=== PATIENT | male | born 1950 | race Caucasian/White ===

== ENCOUNTER 2017-03-28 21:45 | Emergency (ER) | payer OTHER ==
[2017-03-29 00:35] LABS: ABSOLUTE BASOPHIL COUNT 0 /CUMM (0.0-0.2); ABSOLUTE EOSINOPHIL COUNT 0.2 /CUMM (0.0-0.7); ABSOLUTE LYMPH COUNT 1.7 /CUMM (1.2-3.4); ABSOLUTE MONOCYTE COUNT 0.9 /CUMM (0.10-0.60); BASOPHIL % 0.3 % (0.0-2.0); EOSINOPHIL % 1.8 % (0-5); GRANULOCYTE % 73.5 % (42.2-75.2); HEMATOCRIT 41.8 % (42-52); MEAN CORPUSCULAR HGB 31.7 PG (27.0-31.0); MEAN CORPUSCULAR HGB CONC 34.3 G/DL (33.0-37.0); MEAN CORPUSCULAR VOLUME 92.5 FL (80.0-94.0); MEAN PLATELET VOLUME 7.7 FL (7.4-10.4); PLATELET COUNT 217 /CUMM (130-400); RBC DISTRIBUTION WIDTH 13.3 % (11.5-14.5); RED BLOOD CELL CT 4.52 /CUMM (4.70-6.10); WHITE BLOOD CELL COUNT 10.9 /CUMM (4.8-10.8)
--- NOTE | 2017-03-29 00:59 | CT SCAN REPORT ---
EXAMINATION: CT ABDOMEN AND PELVIS WITHOUT CONTRAST CLINICAL INFORMATION: Right flank pain, hematuria COMPARISON: None TECHNIQUE: Multidetector volumetric imaging was performed from the superior aspect of the liver through the pubic symphysis. Sagittal and coronal reformatted images were obtained on the technologist's workstation. DLP: 369.58 mGy-cm FINDINGS: LUNG BASES: The visualized lung bases are unremarkable. LIVER, GALLBLADDER, AND BILIARY TREE: The liver is normal in size, shape, and attenuation. There is a subcentimeter low-density focus in the inferior right hepatic lobe on image 31/99, too small to characterize. No biliary ductal dilatation is present. The gallbladder appears collapsed. PANCREAS: Unremarkable. SPLEEN: Unremarkable. ADRENAL GLANDS: Unremarkable. KIDNEYS AND URETERS: The kidneys are normal in size, shape, and attenuation. No hydronephrosis, hydroureter, or calculi seen. No perinephric stranding. BLADDER: Unremarkable. GASTROINTESTINAL TRACT: Colonic diverticulosis is noted. The small and large bowel are otherwise unremarkable without evidence of obstruction or pericolonic inflammatory change. The appendix is not identified. No free fluid or free air is seen. ABDOMINAL WALL: No significant hernia is appreciated. Patient appears status post left inguinal hernia repair. LYMPH NODES: Normal. VASCULAR: Scattered atherosclerotic calcifications are present. PELVIC VISCERA: Unremarkable. OSSEOUS STRUCTURES: Unremarkable. IMPRESSION: 1. No renal/ureteral calculi or hydronephrosis. 2. Colonic diverticulosis without evidence of diverticulitis.
--- NOTE | 2017-03-29 01:04 | ED GI/GU/ABDOMINAL COMPLAINT ---
History of Present Illness General Chief Complaint: General Adult Stated Complaint: PT BACK PAIN AND STARTED URINATED BLOOD Source: patient, old records Exam Limitations: no limitations Vital Signs & Intake/Output Vital Signs & Intake/Output Vital Signs Date Time Temp Pulse Resp B/P B/P Pulse O2 O2 Flow FiO2 Mean Ox Delivery Rate 03/29 0246 98.6 95 16 137/84 97 Room Air 03/29 0027 99.2 69 20 132/75 97 Room Air 03/28 2207 98.0 73 22 155/91 98 ED Intake and Output 03/29 0000 03/28 1200 Intake Total Output Total 300 Balance -300 Output, Urine 300 Allergies Coded Allergies: No Known Allergies (03/28/17) Reconcile Medications No Known Home Medications Triage Note: PER PT CO BACK PAIN AND FELT LIKE A PINCHING. TONIGHT MY URINE IS DARK Triage Nurses Notes Reviewed? yes Onset: Morning Duration: hour(s):, continues in ED, waxing and waning Timing: recent history Quality/Severity: aching, moderate Location: right flank Radiation: groin, RLQ Activities at Onset: none Prior Abdominal Problems: none Past Sexual History: Unobtainable at this time No Modifying Factors: none Associated Symptoms: abdominal pain, hematuria HPI: 12 hours prior to admission patient complains of mild to moderate right flank pain radiating to the groin associated with dark urine and bloody urine he denies fever chills nausea vomiting diarrhea chest pain cough shortness of breath headache dysuria rash.. Past History Travel History Traveled to [place] past 21 day No Medical History Any Pertinent Medical History? none Neurological: NONE EENT: NONE Cardiovascular: NONE Respiratory: NONE Gastrointestinal: NONE Hepatic: NONE Renal: NONE Musculoskeletal: NONE Psychiatric: NONE Endocrine: NONE Surgical History Surgical History: non-contributory Psychosocial History What is your primary language [place] Tobacco Use: Never used Family History Hx Contributory? No Review of Systems Review of Systems Constitutional: Reports: no symptoms. EENTM: Reports: no symptoms. Respiratory: Reports: no symptoms. Cardiovascular: Reports: no symptoms. GI: Reports: see HPI, abdominal pain. Genitourinary: Reports: see HPI, hematuria. Musculoskeletal: Reports: no symptoms. Skin: Reports: no symptoms. Neurological/Psychological: Reports: no symptoms. Hematologic/Endocrine: Reports: no symptoms. Immunologic/Allergic: Reports: no symptoms. All Other Systems: Reviewed and Negative Physical Exam Physical Exam General Appearance: well developed/nourished, alert, awake, anxious, moderate distress, obese Head: atraumatic, normal appearance Eyes: Bilateral: normal appearance, PERRL, EOMI, normal inspection. Ears, Nose, Throat, Mouth: hearing grossly normal, moist mucous membrane Neck: normal inspection, supple, full range of motion, normal alignment Respiratory: normal breath sounds, chest non-tender, no respiratory distress, quiet respiration, lungs clear Cardiovascular: regular rate/rhythm, normal peripheral pulses, norml femoral pulses equa Peripheral Pulses: 4+ carotid (R), 4+ carotid (L) Gastrointestinal: normal bowel sounds, soft, non-tender, no organomegaly Male Genitals: normal genitalia Back: normal inspection, normal range of motion, CVA tenderness (R), no vertebral tenderness Extremities: normal range of motion, no ligament instability Neurologic/Psych: no motor/sensory deficits, awake, alert, oriented x 3, normal gait, normal mood/affect, 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 No Sepsis Present: No Sepsis Focused Exam Completed? No Progress Differential Diagnosis: pancreatitis, pyelonephritis, ureterolithiasis Plan of Care: Orders Procedure Date/time Status LIPASE 03/28 2336 Complete COMPREHENSIVE METABOLIC PANEL 03/28 2336 Complete CBC WITHOUT DIFFERENTIAL 03/28 2335 Complete URINALYSIS 03/286 Complete Laboratory Tests 03/28/17 2354: Anion Gap 11, Estimated GFR > 60, BUN/Creatinine Ratio 18.6, Glucose 105 H, Calcium 8.6, Total Bilirubin 1.4 H, AST 56, ALT 46, Alkaline Phosphatase 45, Total Protein 6.5, Albumin 3.9, Globulin 2.6, Albumin/Globulin Ratio 1.5, Lipase 165, CBC w Diff NO MAN DIFF REQ, RBC 4.52 L, MCV 92.5, MCH 31.7 H, MCHC 34.3, RDW 13.3, MPV 7.7, Gran % 73.5, Lymphocytes % 15.9 L, Monocytes % 8.5, Eosinophils % 1.8, Basophils % 0.3, Absolute Granulocytes 8.0 H, Absolute Lymphocytes 1.7, Absolute Monocytes 0.9 H, Absolute Eosinophils 0.2, Absolute Basophils 0 03/28/17 2210: Urine Color YEL, Urine Clarity CLEAR, Urine pH 7.5, Ur Specific [place] 1.020, Urine Protein NEG, Urine Ketones NEG, Urine Nitrite NEG, Urine Bilirubin NEG, Urine Urobilinogen 1.0, Ur Leukocyte Esterase NEG, Ur Microscopic EXAM NOT REQUIRED, Urine Hemoglobin NEG, Urine Glucose NEG Diagnostic Imaging: Viewed by Me: CT Scan. Discussed w/RAD: CT Scan. Radiology Impression: 1. No renal/ureteral calculi or hydronephrosis. 2. Colonic diverticulosis without evidence of diverticulitis. Initial ED EKG: none Departure Departure Time of Disposition: 252 Disposition: HOME OR SELF CARE Condition: Stable Clinical Impression Primary Impression: Flank pain, acute Secondary Impressions: Hematuria Referrals: Larry SOSA,Ricardo Arevalo Call for urology follow up Jose Chapman DO (PCP/Family) Departure Forms: Customer Survey General Discharge Information Prescriptions: Current Visit Scripts Ibuprofen 1 TAB PO Q6PRN PRN pain #50 TAB with food Oxycodone HCl/Acetaminophen (Percocet 5-325 MG Tablet) 1 TAB PO Q6P PRN severe pain #15 TAB Tamsulosin HCl (Flomax) 1 CAP PO DAILY #15 CAP
[2017-03-29 02:46] VITALS: BP 137/84
[2017-03-29] MEDS ORDERED: IBUPROFEN600 M1 PO (02:55)
[2017-03-29] MEDS ORDERED: PERCOCET 5-3251 EACH PO (02:55)
[2017-03-29] MEDS ORDERED: FLOMAX0.4 M1 PO (02:55)
== END 2017-03-29 03:04 ==
LOC: ERH 21:45
PROVIDERS: Emergency Medicine
DX: R10.9 Unspecified abdominal pain (principal); R31.9 Hematuria, unspecified
CPT/HCPCS: 74176; 81003; 96361; 96374; J1885